=== PATIENT | male | born 1990 | race Caucasian/White ===

== ENCOUNTER 2019-06-01 11:20 | Day surgery (SDC) | payer OTHER ==
[~2019-06-01 11:20] MED LIST: LACTATED RINGERS 1000 ML IV PRN; LIDOCAINE 0.5% INJ-PF (5 MG/ML) 50 ML SDV SUBCUT PRN
[2019-06-01] MEDS ORDERED: ONDANSETRON HCL INJ/PF 4 MG/2 ML SDV ONE (11:29)
[2019-06-01] MEDS ORDERED: MIDAZOLAM 2 MG/2 ML INJ ONE (11:29)
[2019-06-01] MEDS ORDERED: PROPOFOL INJ 200 MG/20 ML VIAL IV ONE ×2 (11:30→14:10)
[2019-06-01] MEDS ORDERED: MORPHINE SULFATE 10 MG/ML INJ IV PRN (13:23)
[2019-06-01] MEDS ORDERED: ONDANSETRON HCL INJ/PF 4 MG/2 ML SDV IV PRN (13:23)
[2019-06-01] MEDS ORDERED: DIPHENHYDRAMINE HCL 50 MG/ML VIAL IV PRN (13:23)
[2019-06-01] MEDS ORDERED: FENTANYL CITRATE INJ/PF 100 MCG/2 ML AMPUL IV PRN ×3 (13:23)
[2019-06-01] MEDS ORDERED: MEPERIDINE HCL/PF INJ 25 MG/1 ML DISP.SYRIN IV PRN (13:23)
[2019-06-01] MEDS ORDERED: OXYCODONE-ACETAMINOPHEN 5-325 MG TABLET PO PRN ×3 (13:23→14:29)
[2019-06-01] MEDS ORDERED: BUPIVACAINE INJ/PF LIPOSOME/PF 266 MG/20 ML SDV ONE (13:29)
--- NOTE | 2019-06-01 14:28 | Operative Report ---
Nonrecallable Operative Report DATE OF SURGERY: 06/01/19 PREOPERATIVE DIAGNOSIS: anal condyloma POSTOPERATIVE DIAGNOSIS: Anal condylomata and grade 2 hemorrhoid OPERATION: Hemorrhoidal banding and ulceration of anal condylomata SURGEON: TOMMY ALFORD ANESTHESIA: LMAC TISSUE REMOVED OR ALTERED: Anal condylomata COMPLICATIONS: None ESTIMATED BLOOD LOSS: Negligible PROCEDURE: She was brought to the operating room awake alert stable condition placed in the upper table supine position general anesthesia. Laced up in a high lithotomy position. The rectum and perineum were prepped and draped in usual sterile fashion after appropriate timeout and site verification. Her graph did not have obvious evidence of external anal condylomata however on placing the endoscope we did note there were multiple condylomata of the anoderm just distal to the dentate line using Bovie cautery we were cauterized and removed a number of the more sent to pathology. Her graph there is also one hemorrhoid at the 7 o'clock position where a rubber band was placed on it. At the termination of the fulguration I anesthetized the submucosa with extra Prill solution which completed the procedure. He was taken down off a high lithotomy and awakened from anesthesia and transferred to recovery in stable condition Bunge needle counts were correct x2 at the termination procedure estimated blood loss was negligible.
--- NOTE | 2019-06-01 14:29 | Discharge Summary ---
Discharge Summary (SDC) - Discharge Final Diagnosis: Rectal condylomata and hemorrhoids Date of Surgery: 06/01/19 Discharge Date: 06/01/19 Condition: Good Treatment or Instructions: Sits baths using Epsom salts twice daily to 3 times daily. Referrals: PB MILLS MD [Primary Care Provider] - Discharge Diet: As Tolerated Discharge Activity: Activity As Tolerated Report the Following to Your Physician Immediately: Nausea, Vomiting, Increase in Pain, Fever over 101 Degrees - Patient is a follow-up appointment with me in surgical clinic in 10 to 14 days
[2019-06-01] MEDS: FENTANYL CITRATE INJ/PF 100 MCG/2 ML AMPUL ONE ×2 (15:00→15:05)
[2019-06-01] MEDS ORDERED: FENTANYL CITRATE INJ/PF 100 MCG/2 ML AMPUL ONE (15:05)
[2019-06-01] MEDS ORDERED: OXYCODONE-ACETAMINOPHEN 5-325 MG TABLET ONE (15:53)
[2019-06-01 17:15] VITALS: BP 133/76
== END 2019-06-01 17:15 | disposition home or self-care (01) ==
LOC: OROUT 11:20
PROVIDERS: ATTEND Surgery
DX: K64.9 Unspecified hemorrhoids (principal); Z21 Asymptomatic human immunodeficiency virus [HIV] infection status; A63.0 Anogenital (venereal) warts
CPT/HCPCS: 88305 ×2; 00902; 46221; 46922; J2250; J3010; J2405; J2704; C9290; 902